=== PATIENT | female | born 1955 | race Caucasian/White ===

== ENCOUNTER 2022-07-10 06:14 | Emergency (ER) | payer MEDICARE, OTHER ==
[2022-07-10] MEDS ORDERED: Doxycycline 100 MG Cap PO ONE (07:27)
== END 2022-07-10 07:44 | disposition home or self-care (01) ==
LOC: JP.ED 06:14
DX: S30.860A Insect bite (nonvenomous) of lower back and pelvis, initial encounter (principal); L50.9 Urticaria, unspecified; E78.00 Pure hypercholesterolemia, unspecified; I10 Essential (primary) hypertension; K21.9 Gastro-esophageal reflux disease without esophagitis; F17.210 Nicotine dependence, cigarettes, uncomplicated; Z98.890 Other specified postprocedural states; Z91.048 Other nonmedicinal substance allergy status; Z79.899 Other long term (current) drug therapy; W57.XXXA Bitten or stung by nonvenomous insect and other nonvenomous arthropods, initial encounter
CPT/HCPCS: 99281; A9270